=== PATIENT | male | born 1980 ===

== ENCOUNTER 2023-02-23 17:31 | Emergency (ER) | payer OTHER ==
[~2023-02-23] VITALS: Ht 165.1 cm; Wt 63.6 kg
[2023-02-23 19:04] VITALS: BP 151/90
== END 2023-02-23 19:16 | disposition home or self-care (01) ==
LOC: EMS 17:35
DX: S19.9XXA Unspecified injury of neck, initial encounter (principal); F17.210 Nicotine dependence, cigarettes, uncomplicated; Y08.89XA Assault by other specified means, initial encounter; Y93.89 Activity, other specified; Y92.89 Other specified places as the place of occurrence of the external cause; Y99.8 Other external cause status
CPT/HCPCS: 99282; Z7502